=== PATIENT | female | born 1975 | race American Indian/Alaskan Native ===

== ENCOUNTER 2018-12-03 01:11 | Emergency (ER) | payer MEDICARE ==
[2018-12-03 01:39] LABS: Hematocrit 38.8 % (30.3-42.9); Hemoglobin 12.9 gm/dl (10.1-14.3); Mean Corpuscular HGB Conc 33 % (30-34); Mean Corpuscular Volume 96 fl (79-97); Platelet Count 297 K/mm3 (140-440); Red Blood Count 4.04 M/mm3 (3.65-5.03); Red Cell Distribution Width 14.1 % (13.2-15.2)
[2018-12-03 02:02] LABS: Alanine Aminotransferase 10 units/L (7-56); Albumin 4.1 g/dL (3.9-5); BUN/Creatinine Ratio 27; Blood Urea Nitrogen 24 mg/dL (7-17); Calcium 9.8 mg/dL (8.4-10.2); Hemolysis Index 3
[2018-12-03 02:06] LABS: Bilirubin,Urine NEG (Negative); Blood,Urine NEG (Negative); Color,Urine Yellow (Yellow); Mucus,Urine FEW /HPF; Protein,Urine <15 mg/dL mg/dL (Negative); Urobilinogen,Urine < 2.0 mg/dL (<2.0)
[2018-12-03] MEDS ORDERED: ZOFRAN IV ONE (02:26)
[2018-12-03] MEDS ORDERED: NACL 0.9% 1000 ML 1,000 ML IV ONE (02:26)
[2018-12-03] MEDS ORDERED: BENTYL IM ONE (02:26)
[2018-12-03] MEDS ORDERED: DILAUDID IV ONE (03:11)
[2018-12-03 03:19] LABS: Anisocytosis 1+; Basophils % (Manual) 0 % (0.0-1.8); Total Cells Counted 100
--- NOTE | 2018-12-03 03:37 | Emergency Department Report ---
ED Abdominal Pain HPI - General Chief Complaint: Abdominal Pain Stated Complaint: ABDOMINAL PAIN X 2DAYS/CROHNS Time Seen by Provider: 12/03/18 01:47 Source: patient Mode of arrival: Ambulatory Limitations: No Limitations - History of Present Illness Initial Comments: Pt is a 43 yo female who presents to the ED with c/o epigastric abdominal pain that began two days ago. She has associated nausea. She denies any V/D, fever, or urinary sx. She denies any hematochezia, melena, or pus in the stool. she is having normal BMs. PMHx of Crohns. She states that she was previously on remicade for her crohns. she states she is now on Humria. she states she re ceived her first injection 8 days ago. She states she believes she is now having a "flare of her crohns." Severity scale (0 -10): 8 - Related Data Previous Rx's Medication Instructions Recorded Last Taken Type Dicyclomine [Bentyl] 10 mg PO TID PRN #14 capsule 12/03/18 Unknown Rx Omeprazole 20 mg PO DAILY #14 tab.rap.dr 12/03/18 Unknown Rx Sucralfate [Carafate] 1 gm PO Q6HR #7 tablet 12/03/18 Unknown Rx predniSONE [Deltasone] 40 mg PO QDAY 5 Days #10 tab 12/03/18 Unknown Rx Allergies Allergy/AdvReac Type Severity Reaction Status Date / Time Sulfa (Sulfonamide Allergy Itching Verified 12/03/18 01:15 Antibiotics) sulfamethoxazole Allergy Itching Verified 12/03/18 01:15 [From Bactrim] tramadol Allergy Swelling Verified 12/03/18 01:16 trimethoprim [From Bactrim] Allergy Itching Verified 12/03/18 01:15 ceftriaxone [From Rocephin] AdvReac Unknown Verified 12/03/18 01:15 morphine AdvReac Unknown Verified 12/03/18 01:14 pregabalin [From Lyrica] AdvReac Unknown Verified 12/03/18 01:16 ED Review of Systems ROS: Stated complaint: ABDOMINAL PAIN X 2DAYS/CROHNS Other details as noted in HPI Comment: All other systems reviewed and negative ED Past Medical Hx - Past Medical History Previous Medical History?: Yes Additional medical history: crohn's - Surgical History Past Surgical History?: Yes Hx Appendectomy: Yes Additional Surgical History: x3. hyster - Social History Smoking Status: Current Some Day Smoker Substance Use Type: Alcohol - Medications Home Medications: Home Medications Medication Instructions Recorded Confirmed Last Taken Type Dicyclomine [Bentyl] 10 mg PO TID PRN #14 capsule 12/03/18 Unknown Rx Omeprazole 20 mg PO DAILY #14 tab.rap.dr 12/03/18 Unknown Rx Sucralfate [Carafate] 1 gm PO Q6HR #7 tablet 12/03/18 Unknown Rx predniSONE [Deltasone] 40 mg PO QDAY 5 Days #10 tab 12/03/18 Unknown Rx ED Physical Exam - General Limitations: No Limitations General appearance: alert, in no apparent distress - Head Head exam: Present: atraumatic, normocephalic - Eye Eye exam: Present: normal appearance - ENT ENT exam: Present: mucous membranes moist - Respiratory Respiratory exam: Present: normal lung sounds bilaterally. Absent: respiratory distress, wheezes, rales, rhonchi, stridor, chest wall tenderness, accessory muscle use, decreased breath sounds, prolonged expiratory - Cardiovascular Cardiovascular Exam: Present: regular rate, normal rhythm, normal heart sounds. Absent: systolic murmur, diastolic murmur, rubs - GI/Abdominal GI/Abdominal exam: Present: soft, tenderness (epigastric ), normal bowel sounds. Absent: distended, guarding, rebound, rigid - Neurological Exam Neurological exam: Present: alert, oriented X3 - Psychiatric Psychiatric exam: Present: normal affect, normal mood - Skin Skin exam: Present: warm, dry, intact ED Course Vital Signs 12/03/18 12/03/18 12/03/18 01:15 04:10 04:24 Temperature 97.7 F 97.7 F Pulse Rate 92 H 84 Respiratory 18 16 16 Rate Blood Pressure 126/49 Blood Pressure 106/40 [Left] O2 Sat by Pulse 99 98 98 Oximetry ED Medical Decision Making - Lab Data Result diagrams: 12/03/18 01:22 12/03/18 01:20 Lab Results 12/03/18 12/03/18 12/03/18 Range/Units 01:20 01:22 01:30 WBC 16.3 H (4.5-11.0) K/mm3 RBC 4.04 (3.65-5.03) M/mm3 Hgb 12.9 (10.1-14.3) gm/dl Hct 38.8 (30.3-42.9) % MCV 96 (79-97) fl MCH 32 (28-32) pg MCHC 33 (30-34) % RDW 14.1 (13.2-15.2) % Plt Count 297 (140-440) K/mm3 Lymph # Animal Care Supervisor Add Manual Diff Complete Total Counted 100 Seg Neuts % (Manual) 46.0 (40.0-70.0) % Band Neutrophils % 0 % Lymphocytes % (Manual) 44.0 H (13.4-35.0) % Reactive Lymphs % (Man) 0 % Monocytes % (Manual) 4.0 (0.0-7.3) % Eosinophils % (Manual) 4.0 (0.0-4.3) % Basophils % (Manual) 0 (0.0-1.8) % Metamyelocytes % 2.0 % Myelocytes % 0 % Promyelocytes % 0 % Blast Cells % 0 % Nucleated RBC % Not Reportable Seg Neutrophils # Man 7.5 (1.8-7.7) K/mm3 Band Neutrophils # 0.0 K/mm3 Lymphocytes # (Manual) 7.2 H (1.2-5.4) K/mm3 Abs React Lymphs (Man) 0.0 K/mm3 Monocytes # (Manual) 0.7 (0.0-0.8) K/mm3 Eosinophils # (Manual) 0.7 H (0.0-0.4) K/mm3 Basophils # (Manual) 0.0 (0.0-0.1) K/mm3 Metamyelocytes # 0.3 K/mm3 Myelocytes # 0.0 K/mm3 Promyelocytes # 0.0 K/mm3 Blast Cells # 0.0 K/mm3 WBC Morphology Not Reportable Hypersegmented Neuts Not Reportable Hyposegmented Neuts Not Reportable Hypogranular Neuts Not Reportable Smudge Cells Not Reportable Toxic Granulation Not Reportable Toxic Vacuolation Not Reportable Dohle Bodies Not Reportable Pelger-Huet Anomaly Not Reportable Shirley Rods Not Reportable Platelet Estimate Appears normal Clumped Platelets Not Reportable Plt Clumps, EDTA Not Reportable Large Platelets Not Reportable Giant Platelets Not Reportable Platelet Satelliting Not Reportable Plt Morphology Comment Not Reportable RBC Morphology Not Reportable Dimorphic RBCs Not Reportable Polychromasia Not Reportable Hypochromasia Not Reportable Poikilocytosis Not Reportable Anisocytosis 1+ Microcytosis Not Reportable Macrocytosis Not Reportable Spherocytes Not Reportable Pappenheimer Bodies Not Reportable Sickle Cells Not Reportable Target Cells Not Reportable Tear Drop Cells Not Reportable Ovalocytes Not Reportable Helmet Cells Not Reportable Andrade-Vincent Bodies Not Reportable [place] Rings Not Reportable Chery Cells Not Reportable Bite Cells Not Reportable Crenated Cell Not Reportable Elliptocytes Not Reportable Acanthocytes (Spur) Not Reportable Rouleaux Not Reportable Hemoglobin C Crystals Not Reportable Schistocytes Not Reportable Malaria parasites Not Reportable Miguel Angel Bodies Not Reportable Hem Pathologist Commnt No Sodium 140 (137-145) mmol/L Potassium 4.0 (3.6-5.0) mmol/L Chloride 102.2 (98-107) mmol/L Carbon Dioxide 24 (22-30) mmol/L Anion Gap 18 mmol/L BUN 24 H (7-17) mg/dL Creatinine 0.9 (0.7-1.2) mg/dL Estimated GFR > 60 ml/min BUN/Creatinine Ratio 27 % Glucose 108 H (65-100) mg/dL Calcium 9.8 (8.4-10.2) mg/dL Total Bilirubin 0.30 (0.1-1.2) mg/dL AST 12 (5-40) units/L ALT 10 (7-56) units/L Alkaline Phosphatase 62 (35-129) units/L Total Protein 7.1 (6.3-8.2) g/dL Albumin 4.1 (3.9-5) g/dL Albumin/Globulin Ratio 1.4 % Urine Color Yellow (Yellow) Urine Turbidity Clear (Clear) Urine pH 5.0 (5.0-7.0) Ur Specific Dickinson 1.034 H (1.003-1.030) Urine Protein <15 mg/dl (Negative) mg/dL Urine Glucose (UA) Neg (Negative) mg/dL Urine Ketones Neg (Negative) mg/dL Urine Blood Neg (Negative) Urine Nitrite Neg (Negative) Urine Bilirubin Neg (Negative) Urine Urobilinogen < 2.0 (<2.0) mg/dL Ur Leukocyte Esterase Neg (Negative) Urine WBC (Auto) 2.0 (0.0-6.0) /HPF Urine RBC (Auto) 2.0 (0.0-6.0) /HPF U Epithel Cells (Auto) 1.0 (0-13.0) /HPF Urine Mucus Few /HPF Vital Signs 12/03/18 12/03/18 12/03/18 01:15 04:10 04:24 Temperature 97.7 F 97.7 F Pulse Rate 92 H 84 Respiratory 18 16 16 Rate Blood Pressure 126/49 Blood Pressure 106/40 [Left] O2 Sat by Pulse 99 98 98 Oximetry - Radiology Data Radiology results: report reviewed PROCEDURE: CT ABDOMEN PELVIS W CON TECHNIQUE: Computerized axial tomography of the abdomen and pelvis was performed after the IV injection of iodinated nonionic contrast. CT DOSE LENGTH PRODUCT: mGycm HISTORY: epigastric abd pain, hx of crohns COMPARISONS: None . FINDINGS: Visualized lower thorax: No significant abnormality. Liver: Normal size and attenuation. Spleen: Normal size and attenuation. Gallbladder and biliary system: Normal. Pancreas: Normal. Adrenals: Normal. Kidneys: No evidence of stones or hydronephrosis.. GI tract: There are surgical clips and anastomotic suture lines in the right lower quadrant. There are multiple nondistended fluid-filled loops of ileum in the pelvis without t ransition point or asymmetric wall thickening. A mild enteritis still cannot be excluded.. There is no evidence of ileus or bowel obstruction. The appendix is not seen. The colon is normal in caliber. . Lymph nodes and mesentery: Normal. Vasculature: Normal.. Bladder: Normal. Reproductive organs: Normal. Peritoneum: No free fluid. Musculoskeletal structures: No significant abnormality. Other: None . IMPRESSION: Multiple nondistended fluid-filled loops of ileum in the pelvis without t ransition point or asymmetric mucosal thickening. A mild enteritis still cannot be excluded. No evidence of ileus or bowel obstruction otherwise. Remote postsurgical changes in the right lower quadrant. Appendix not identified.. This document is electronically signed by Wes Guy MD., Dec 03 2018 03:51:19 AM ET - Medical Decision Making Pt is a 43 yo female who presents to the ED with c/o epigastric abdominal pain that began two days ago. She has associated nausea. She denies any V/D, fever, or urinary sx. She denies any hematochezia, melena, or pus in the stool. she is having normal BMs. PMHx of Crohns. She states that she was previously on remicade for her crohns. she states she is now on Humria. she states she received her first injection 8 days ago. She states she believes she is now having a "flare of her crohns." CT abd pelvis Multiple nondistended fluid-filled loops of ileum in the pelvis without transition point or asymmetric mucosal thickening. A mild enteritis still cannot be excluded. No evidence of ileus or bowel obstruction otherwise. Remote postsurgical changes in the right lower quadrant. Appendix not identified. labs with elevated WBC count otherwise normal. UA is normal. pt will be given bentyl, carfate, omeprazole, and short course of steroids. will have pt follow up with her GI doctor in the next 2-3 days. return to the emergency room for any new or worsening symptoms. Critical care attestation.: If time is entered above; I have spent that time in minutes in the direct care of this critically ill patient, excluding procedure time. ED Disposition Clinical Impression: Abdominal pain Qualifiers: Abdominal location: epigastric Qualified Code(s): R10.13 - Epigastric pain Leukocytosis Qualifiers: Leukocytosis type: unspecified Qualified Code(s): D72.829 - Elevated white blood cell count, unspecified Disposition: TO HOME OR SELFCARE Is pt being admited?: No Does the pt Need Aspirin: No Condition: Stable Instructions: Abdominal Pain (ED) Additional Instructions: Please take medication as prescribed. Follow up with your GI doctor in the next 2-3 days. Follow up with your primary care doctor in the next 2-3 days. return to the emergency room for any new or worsening symptoms. Prescriptions: Dicyclomine [Bentyl] 10 mg PO TID PRN #14 capsule PRN Reason: Spasms Sucralfate [Carafate] 1 gm PO Q6HR #7 tablet predniSONE [Deltasone] 40 mg PO QDAY 5 Days #10 tab Omeprazole 20 mg PO DAILY #14 tab.rap. Referrals: MEHDI HANNA MD [Primary Care Provider] - 2-3 Days your, GI doctor [Other] - 2-3 Days Time of Disposition: 04:06 Print Language: WELSH
--- NOTE | 2018-12-03 03:53 | Cat Scan Report ---
PROCEDURE: CT ABDOMEN PELVIS W CON TECHNIQUE: Computerized axial tomography of the abdomen and pelvis was performed after the IV inject ion of iodinated nonionic contrast. CT DOSE LENGTH PRODUCT: mGycm HISTORY: epigastric abd pain, hx of crohns COMPARISONS: None . FINDINGS: Visualized lower thorax: No significant abnormality. Liver: Normal size and attenuation. Spleen: Normal size and attenuation. Gallbladder and biliary system: Normal. Pancreas: Normal. Adrenals: Normal. Kidneys: No evidence of stones or hydronephrosis.. GI tract: There are surgical clips and anastomotic suture lines in the right lower quadrant. There a re multiple nondistended fluid-filled loops of ileum in the pelvis without transition point or asymme tric wall thickening. A mild enteritis still cannot be excluded.. There is no evidence of ileus or nina wel obstruction. The appendix is not seen. The colon is normal in caliber. . Lymph nodes and mesentery: Normal. Vasculature: Normal.. Bladder: Normal. Reproductive organs: Normal. Peritoneum: No free fluid. Musculoskeletal structures: No significant abnormality. Other: None . IMPRESSION: Multiple nondistended fluid-filled loops of ileum in the pelvis without transition point or asymmetri c mucosal thickening. A mild enteritis still cannot be excluded. No evidence of ileus or bowel obstruction otherwise. Remote postsurgical changes in the right lower quadrant. Appendix not identified.. This document is electronically signed by Wes Guy MD., Dec 03 2018 03:51:19 AM ET
[2018-12-03 04:11] VITALS: BP 106/40
== END 2018-12-03 04:25 | disposition home or self-care (01) ==
LOC: ED 01:11
DX: R10.13 Epigastric pain (principal); R11.0 Nausea; D72.829 Elevated white blood cell count, unspecified; F17.200 Nicotine dependence, unspecified, uncomplicated; Z90.89 Acquired absence of other organs; Z90.710 Acquired absence of both cervix and uterus; Z87.19 Personal history of other diseases of the digestive system; Z88.2 Allergy status to sulfonamides; Z88.6 Allergy status to analgesic agent; Z88.1 Allergy status to other antibiotic agents; Z88.8 Allergy status to other drugs, medicaments and biological substances
CPT/HCPCS: 36415; 74177; 80053; 81001; 85007; 85025; 96374; 96375; 99283; J0500; J1170; J2405; J7030; Q9967; 96361